=== PATIENT | female | born 1990 ===

== ENCOUNTER 2023-09-19 07:45 | Inpatient (IN) | payer OTHER ==
[~2023-09-19] VITALS: Ht 157.5 cm; Wt 3.2 kg
[2023-09-19 09:18] LABS: HEMATOCRIT 34.7 % (36.0-45.00); HEMOGLOBIN 11.5 g/dL (12.0-15.00); MEAN CELL VOLUME 84.1 fL (80.00-100.00); MEAN CORPUSCULAR HEMOGLOBIN 27.9 pg (27.00-32.0); MEAN CORPUSCULAR HGB CONC 33.2 g/dl (32.0-36.0); PH,URINE 6.5 (5.0-8.0); PLATELET COUNT 248 K/uL (150-450); RED BLOOD COUNT 4.12 M/uL (4.00-6.00); RED CELL DISTRIBUTION WIDTH 16.5 % (11.5-14.5); URINE APPEARANCE Cloudy; URINE BILIRRUBIN Small (NEGATIVE); URINE BLOOD Negative; URINE COLOR Dark Yellow; URINE GLUCOSE Negative (NEGATIVE); URINE LEUKOCYTE Large; URINE NITRATE Negative; URINE PROTEIN 30 (NEGATIVE)
[2023-09-19 09:22] LABS: URINE BACTERIA 7532.1 uL (0.0-1933); URINE RBC 6.8 uL (0.0-20.8); URINE WBC 363.7 uL (0.0-23.2)
[2023-09-19 09:48] LABS: INR < 0.93; PARTIAL THROMBOPLASTIN TIME 28.8 SECONDS (22.0-34.0); PROTHROMBIN TIME 9.8 SECONDS (9.0-11.5)
[2023-09-19 09:50] LABS: URINE EPITHELIAL CELLS > 201.7 uL (0.0-38.8)
[2023-09-25] MEDS ORDERED: SYNTHROID50 MCG PO (12:52)
[2023-09-25] MEDS ORDERED: IRON18 MG PO (12:52)
[2023-09-25 19:09] LABS: ABG PH 7.135 (7.35-7.45); ABG PO2 24.5 mmHg (80-100); ABG pCO2 57.6 mmHg (35-45); BASE EXCESS -10.7 mmol/l; SaO2 25.2 %; Tco2 20.7 mmol/l
[2023-09-25 19:10] LABS: o2 21 %
[2023-09-25 20:09] LABS: HEMATOCRIT 30.6 % (36.0-45.00); MEAN CELL VOLUME 85.5 fL (80.00-100.00); MEAN CORPUSCULAR HEMOGLOBIN 27.9 pg (27.00-32.0); MEAN CORPUSCULAR HGB CONC 32.6 g/dl (32.0-36.0); PLATELET COUNT 211 K/uL (150-450); RED BLOOD COUNT 3.58 M/uL (4.00-6.00); RED CELL DISTRIBUTION WIDTH 16.9 % (11.5-14.5)
== END 2023-09-28 14:40 | disposition home or self-care (01) | DRG 788 ==
LOC: OB/GYN 09-25 07:45 → O/R 09-25 12:06 → OB/GYN 09-25 18:00
PROVIDERS: ADMIT Obstetrics & Gynecology; ATTEND Obstetrics & Gynecology
PROC: 4A1HXCZ Monitoring of Products of Conception, Cardiac Rate, External Approach (ICD-10-PCS; 2023-09-25)
PROC: 10D00Z1 Extraction of Products of Conception, Low, Open Approach (ICD-10-PCS; principal; 2023-09-25 11:00)
DX: O34.211 Maternal care for low transverse scar from previous cesarean delivery (principal); Z3A.39 39 weeks gestation of pregnancy; Z37.0 Single live birth; Z20.822 Contact with and (suspected) exposure to COVID-19